=== PATIENT | female | born 1995 | race Caucasian/White ===

== ENCOUNTER 2019-08-27 22:55 | Emergency (ER) | payer BC ==
[~2019-08-27] VITALS: Ht 170.2 cm; Wt 61.4 kg
[2019-08-27 22:59] VITALS: BP 119/76
--- NOTE | 2019-08-27 23:15 | NUR ---
BIB SELF AFTER CUTTING THE TIP OF HER LEFT INDEX FINGER ON A WHITE BOARD. BLEEDING CONTROLLED, +CMS TO FINGER AND HANDS. PATIENT DENIES ANY OTHER SYMPTOMS.
[2019-08-27 23:33] VITALS: BP 119/76
--- NOTE | 2019-08-27 23:33 | NUR ---
Patient discharged with v/s stable. Written and verbal after care instructions given and explained. Patient verbalized understanding. Ambulatory with steady gait. All questions addressed prior to discharge. Advised to follow up with PMD.
== END 2019-08-27 23:33 | disposition home or self-care (01) ==
LOC: MED 22:55
DX: S61.211A Laceration without foreign body of left index finger without damage to nail, initial encounter (principal); X58.XXXA Exposure to other specified factors, initial encounter; Y93.89 Activity, other specified; Y92.89 Other specified places as the place of occurrence of the external cause; Y99.8 Other external cause status
CPT/HCPCS: 12001; 90471; 90715; 99283